=== PATIENT | male | born 2005 | race African-American/Black ===

== ENCOUNTER 2025-07-26 11:53 | Emergency (ER) | payer SELFPAY ==
[2025-07-26] MEDS ORDERED: Acetaminophen 500 MG TAB ONE (11:58)
[2025-07-26] MEDS ORDERED: Ketorolac Tromethamine 30 MG (1 mL) VIAL ONE (11:58)
== END 2025-07-26 12:55 | disposition home or self-care (01) ==
LOC: ERS 11:53
DX: J02.9 Acute pharyngitis, unspecified (principal); I10 Essential (primary) hypertension
CPT/HCPCS: 96372; 99282; J1100; J1885